=== PATIENT | female | born 1980 | race Caucasian/White ===

== ENCOUNTER 2017-04-26 08:01 | Outpatient (CLI) | payer MEDICARE, OTHER ==
[2015-08-01 15:44] VITALS: BP 116/49
== END 2017-04-26 08:02 ==
LOC: LAB 08:01
PROVIDERS: ATTEND Psychiatry & Neurology Psychiatry
DX: F31.32 Bipolar disorder, current episode depressed, moderate (principal)
CPT/HCPCS: 36415; 80178

== ENCOUNTER 2019-07-18 08:17 | Outpatient (CLI) | payer MEDICARE, OTHER ==
[2015-08-01 15:44] VITALS: BP 116/49
== END 2019-07-18 08:22 ==
LOC: LAB 08:17
PROVIDERS: ATTEND Nurse Practitioner Family
DX: E03.4 Atrophy of thyroid (acquired) (principal)
CPT/HCPCS: 36415; 84443